=== PATIENT | female | born 1995 | race Two or more races ===

== ENCOUNTER 2021-05-10 23:29 | Emergency (ER) | payer MEDICAID, OTHER ==
[~2021-05-10] VITALS: Ht 157.5 cm; Wt 49.9 kg
[2021-05-10 23:30] VITALS: BP 137/95
[2021-05-11] MEDS ORDERED: KETOROLAC TROMETH 30 MG/ML 1ML VIAL IM ONE (00:45)
[2021-05-11] MEDS ORDERED: IBUP800T27 PO (01:06)
== END 2021-05-11 02:07 | disposition home or self-care (01) ==
LOC: ER 23:29
DX: G44.209 Tension-type headache, unspecified, not intractable (principal)
CPT/HCPCS: 96372; 99283; J1885